=== PATIENT | male | born 2000 | race Caucasian/White ===

== ENCOUNTER 2020-01-26 19:22 | Observation (INO) ==
[2020-01-26] MEDS ORDERED: Ondansetron 4 mg VIAL 2 MG/ML 2 ml VIAL IV ONE (19:42)
[2020-01-26] MEDS ORDERED: NS 0.9% 1000 ml BAG 3,000 ML IV ONE (19:42)
[2020-01-26] MEDS ORDERED: Morphine 10 MG/ML VIAL (1 ml) IV ONE (19:43)
[2020-01-26 20:33] LABS: ABS Lymphocytes 1.1 10^3/ul (1.0-4.8); ABS Monocytes 0.7 10^3/ul (0-0.8); ABS Neutrophils 12.8 10^3/ul (1.5-7.7); Eosinophil % 0.1 %; Hematocrit 45 % (42-52); Hemoglobin 15.5 g/dL (14.0-18.0); Lymphocyte % 7.4 %; Mean Corpuscular HGB Conc 35 g/dL (31-36); Mean Corpuscular Hemoglobin 30 pg (27-31); Mean Corpuscular Volume 86 fL (80-94); Mean Platelet Volume 9.2 fL (7.4-10.4); Platelet Count 176 10^3/uL (150-450); Red Blood Count 5.18 10^6 /uL (4.18-5.48); Red Cell Distribution Width 13 % (10-15); White Blood Count 14.6 10^3/uL (3.5-10.8)
[2020-01-26 20:35] LABS: Urine Appearance Clear; Urine Bilirubin Negative (Negative); Urine Blood Negative (Negative); Urine Color Yellow; Urine Glucose Negative (Negative); Urine Ketones Trace (Negative); Urine Nitrite Negative (Negative); Urine Protein Negative (Negative); Urine Specific Gravity 1.019 (1.010-1.030); Urine Urobilinogen Negative (Negative)
[2020-01-26 20:50] LABS: Albumin 4.9 g/dL (3.2-5.2); Albumin/Globulin Ratio 1.7 (1-3); BUN/Creatinine Ratio 12.6 (8-20); C Reactive Protein 1.51 mg/L (<8.01); Calcium 9.8 mg/dL (8.6-10.3); EGFR African American 122.3 (>60); EGFR Non-African American 101.1 (>60); Globulin 2.9 g/dL (2-4); Potassium 3.9 mmol/L (3.5-5.0); Total Bilirubin 0.8 mg/dL (0.2-1.0); Total Protein 7.8 g/dL (6.4-8.9)
[2020-01-26] MEDS ORDERED: Iohexol 300 (CONTRAST) 10 ML SDV IV ONE (21:02)
[2020-01-26] MEDS ORDERED: NS 0.9% 1,000 ML IV SCH (23:15)
[2020-01-26] MEDS ORDERED: Morphine 2 MG/ML SYRINGE IV PRN (23:15)
[2020-01-26] MEDS ORDERED: ZOSYN 3.375 GM x ONE DOSE over 30 miuntes IV (23:30)
[2020-01-27] MEDS ORDERED: Zosyn per Pharmacy NOTE FOLLOW UP PRN (03:30)
[2020-01-27] MEDS: ZOSYN 3.375 GM Q8H per EXTENDED INFUSION IV SCH ×2 (04:16→12:16)
[2020-01-27] MEDS ORDERED: Bupivacaine 0.25% SDV 30 ML ONE (13:10)
[2020-01-27] MEDS ORDERED: fentaNYL 100 mcg/2 ml 50 MCG/ML VIAL ONE (13:37)
[2020-01-27] MEDS ORDERED: Midazolam 2 mg/2 ml VIAL 1 mg/ml 2 ml VIAL (2 mg) ONE ×2 (13:37→13:48)
[2020-01-27] MEDS ORDERED: Propofol 10 MG/ML 20 ML BTL ONE (14:03)
[2020-01-27] MEDS ORDERED: Rocuronium 50 mg VIAL 10 mg/ml 5 ml VIAL (50 mg) ONE (14:03)
[2020-01-27] MEDS ORDERED: Ondansetron 4 mg VIAL 2 MG/ML 2 ml VIAL ONE (14:03)
[2020-01-27] MEDS ORDERED: Dexamethasone IV 4 MG/ML VIAL 1 ml VIAL ONE (14:03)
[2020-01-27] MEDS ORDERED: Acetaminophen IV 1 GM/100ML 100 ML ONE (14:13)
[2020-01-27] MEDS ORDERED: Naloxone 0.4 mg VIAL 0.4 mg/ml 1 ml VIAL IV PRN (14:16)
[2020-01-27] MEDS ORDERED: fentaNYL 100 mcg/2 ml 50 MCG/ML VIAL IV PRN (14:16)
[2020-01-27] MEDS ORDERED: Ondansetron 4 mg VIAL 2 MG/ML 2 ml VIAL IV PRN (14:16)
[2020-01-27] MEDS ORDERED: DiMENhydriNATE IV 50 mg/ml 1 ml VIAL IV PUSH PRN (14:16)
[2020-01-28 12:03] VITALS: BP 112/55
== END 2020-01-28 12:40 | disposition home or self-care (01) ==
LOC: ED 19:22 → SSU 19:22
PROVIDERS: ADMIT Surgery Surgical Critical Care; ATTEND Surgery